=== PATIENT | female | born 1955 | race Caucasian/White ===

== ENCOUNTER 2017-11-07 06:39 | Day surgery (SDC) | payer OTHER ==
[~2017-11-07 06:39] MED LIST: Buffered Lidocaine 0.9% SYRIN* 5 ML/SYR SYRINGE INTRADERM ONE; DiMENhydriNATE IV* 50 MG/ML VIAL IV PUSH PRN; Famotidine IV* 10 MG/ML 2 ML (20 mg) IV ONE; Famotidine TAB* 20 MG PO ONE; Naloxone* 0.4 MG/ML 1 ML VIAL IV PRN; PROCHLORPERAZINE INJ 5 MG/ML 2 ML VIAL IV PRN; fentaNYL* 50 MCG/ML 2 ML VIAL (100 MCG VIAL) IV PRN; oxyCODONE/Acetamin 5/325 MG* TAB PO PRN
[2017-11-07] MEDS ORDERED: ceFAZolin 2 GM PREMIX (*) 2 GM/50 ML BAG IVPB ONE (06:57)
[2017-11-07] MEDS ORDERED: Famotidine TAB* 20 MG ONE (07:07)
[2017-11-07] MEDS ORDERED: Lidocaine 1% INJ* 10 MG/ML 30 ML SDV ONE (07:13)
[2017-11-07] MEDS ORDERED: Dexamethasone IV* 4 MG/ML 1 ML (4 MG) ONE ×2 (07:13→07:43)
[2017-11-07] MEDS ORDERED: Bupivacaine 0.5% SDV PF* 10-30ML VIAL ONE (07:14)
[2017-11-07] MEDS ORDERED: Midazolam* 1 MG/ML 5 ML VIAL (5 MG) ONE (07:16)
[2017-11-07] MEDS ORDERED: fentaNYL* 50 MCG/ML 2 ML VIAL (100 MCG VIAL) ONE (07:16)
[2017-11-07] MEDS ORDERED: Labetalol IV* 5 MG/ML 20 ML VIAL ONE (07:43)
[2017-11-07] MEDS ORDERED: Ondansetron INJ* 2 MG/ML VIAL ONE (07:43)
[2017-11-07] MEDS ORDERED: Lidocaine 2% PF * 5 ML VIAL ONE (07:43)
[2017-11-07] MEDS ORDERED: Propofol* 10 MG/ML 20 ML BTL IV PUSH ONE (07:43)
[2017-11-07] MEDS ORDERED: Ketorolac INJ* 30 MG/ML 1 ML VIAL ONE (07:43)
[2017-11-07 08:57] VITALS: BP 109/63
--- NOTE | 2017-11-07 10:27 | OP ---
DATE OF OPERATION: 11/07/17 - [place] [facility] DATE OF : 57 SURGEON: Stuart Clark DPM MINIATURE SET CONSTRUCTOR: None. ANESTHESIA: MAC with local. PRE-OP DIAGNOSIS: Painful bunion with hallux limitus, right foot. POST-OP DIAGNOSIS: Painful bunion with hallux limitus, right foot. OPERATIVE PROCEDURE: Bunionectomy with first metatarsal osteotomy and phalangeal osteotomy on the right foot. PATHOLOGY: Degenerative bone. HEMOSTASIS: Pneumatic ankle tourniquet. ESTIMATED BLOOD LOSS: Less than 10 cc. MATERIALS: Two of the 3.0 mm cannulated Nate screws. INDICATIONS: The patient with chronic right forefoot pain and deformity with bunion and it causing pain wearing shoes and walking. The patient opts for surgery at this time to decrease pain and improve function. DESCRIPTION OF PROCEDURE: The patient was brought to the operating room, placed on the operating room table in supine position. The anesthesia department administered IV sedation and peripheral nerve block was performed of the right forefoot with a 1:1 mixture of 1% lidocaine plain and 0.5% of Marcaine plain. The right foot was then prepped and draped in the usual fashion. The right foot was then examined with an Esmarch bandage and a pneumatic ankle tourniquet was inflated to 250 mmHg above a well-padded right ankle. Attention was directed to the dorsal medial aspect of the right great toe joint where a curvilinear incision was made. The incision was deepened through the subcutaneous tissues with care being taken to retract neurovascular structures and cauterize the superficial bleeders as needed. Next, an inverted L capsular incision was made to allow for exposure of the joint. There was noted to be hypertrophic bone at the medial aspect of the first metatarsal head. Next, a McGlamry elevator was needed to free plantar lateral adhesions of the sesamoid apparatus. Next, dissection was carried into the first intermetatarsal space and traditional lateral release was performed. The extensor hallucis brevis tendon was also identified and transected. Next, the sagittal saw was used to resect the medial eminence in a manner to preserve the sagittal groove. Next, a Chevron type osteotomy was performed with the apex just dorsal and proximal to the geometric center of the first metatarsal head. The plantar wing was cut, angled slightly plantar proximally to allow for some plantar flexion of the capital fragment and similarly, the dorsal wing was cut. The capital fragment was transposed laterally to the corrected position and temporary fixation was achieved with a smooth wire from the screw set. The positioning and correction was assessed with the C-arm. Next, using standard technique, a 3.0-mm cannulated Nate screw was placed across the osteotomy site with care being taken to ensure to the screw did not penetrate into the joint. The correction and fixation was assessed with the C-arm. The osteotomy was found to be solid with no detectable motion or gapping. The screw was two fingers tight. The redundant medial shelf of bone was resected from the first metatarsal medially and the power bur was used to smooth rough edges. The surgical site was flushed with copious amounts of normal sterile saline. There was still some lateral deviation within the great toe, so dissection was carried further distal medially, reflecting the periosteum to allow for exposure the portion of the proximal phalanx. An angular phalangeal osteotomy was performed from distally to more proximal lateral with a medial wedge bone resected and the plantar lateral hinge maintained. The osteotomy was reduced and temporary fixation was achieved with a smooth wire and the position was assessed with a C- arm. Using a standard technique, a 3.0-mm cannulated Mccracken screw was placed across the osteotomy site. The temporary fixation was removed. The osteotomy was found to be solid with no detectable motion or gaping and the screw was found to be two fingers tight. Final correction again was assessed with a C-arm. Medial capsulorrhaphy was performed, resecting the redundant medial capsule. The surgical site was flushed with copious amounts of normal sterile saline. The periosteal and capsular tissues were reapproximated and secured by holding the hallux in a rectus position with 2-0 Vicryl. The subcutaneous tissues were reapproximated with 4-0 Vicryl and the skin was reapproximated with 5-0 nylon. 12 mg of dexamethasone phosphate was infiltrated about the surgical site and the surgical site was then dressed with Xeroform gauze, 4x4 gauze, Vance, and light Coban wrap. The pneumatic ankle tourniquet was deflated about the right ankle and a prompt hyperemic response was noted in all 5 digits of the patient's right foot. Having appeared to have tolerated the procedures and anesthesia well, the patient was transported via cart from the operating room to Recovery in satisfactory condition with cap refill less than 5 seconds to all digits of the right foot. [id number]/[facility] #: [id number]
--- NOTE | 2017-11-08 15:09 | RAD ---
INDICATION: Right foot. No other history is provided. COMPARISONS: None relevant TECHNIQUE: Fluoroscopy was provided for a surgical procedure. Total fluoroscopy time is: 34 seconds FINDINGS: Spot images demonstrate osteotomy of the head of the first metatarsal with fixation screws of the proximal phalanx and first metatarsal. IMPRESSION: FLUOROSCOPY WAS PROVIDED FOR A SURGICAL PROCEDURE CPT II Codes: G9500
== END 2017-11-07 09:20 | disposition home or self-care (01) ==
LOC: OREAST 06:39
PROVIDERS: ATTEND Podiatrist Foot Surgery
DX: M21.611 Bunion of right foot (principal); M20.5X1 Other deformities of toe(s) (acquired), right foot; I10 Essential (primary) hypertension; K21.9 Gastro-esophageal reflux disease without esophagitis
CPT/HCPCS: 76000; 88304; 88311; A9270-GY; C1713; C1776; J0690; J1100; J1885; J2250; J2405; J2704; J3010